=== PATIENT | female | born 1985 | race Caucasian/White ===

== ENCOUNTER 2017-05-10 19:30 | Emergency (ER) | payer OTHER ==
[~2017-05-10] VITALS: Ht 162.6 cm; Wt 54.5 kg
[2017-05-10 19:30] VITALS: BP 167/94
[~2017-05-10 19:30] MED LIST: ACET50TA PO; ANUS2.5C2 TOP; COLA50CA3 PO; IBUP600T26 PO; MILKSUS5 PO
[2017-05-10] MEDS ORDERED: microgestin PO (19:40)
--- NOTE | 2017-05-11 07:41 | REP ---
Left elbow for views: I suspect a nondisplaced fracture of the lateral humeral condyle and one-view. Correlate with clinical point tenderness. CT confirmation might be considered for clinically indicated. There are calcifications adjacent to the medial humeral epicondyle, possibly small a avulsions. There are calcifications at the olecranon, likely degenerative. There is no hemarthrosis. No dislocation. Mineralization normal. Impression: Fractures as described. These could be confirmed with CT if felt clinically indicated. Signed by Tod Daniels MD 05/11/2017 07:33 A
== END 2017-05-10 21:14 | disposition home or self-care (01) ==
LOC: M ED 19:30
DX: S59.902A Unspecified injury of left elbow, initial encounter (principal); W01.198A Fall on same level from slipping, tripping and stumbling with subsequent striking against other object, initial encounter; Y92.310 Basketball court as the place of occurrence of the external cause; Y93.67 Activity, basketball; Y99.8 Other external cause status; Z79.899 Other long term (current) drug therapy

== ENCOUNTER → 2023-06-04 | Outpatient (CLI) | payer OTHER ==
[~2023-06-04] MED LIST changes: -ACET50TA PO; +MAPA500T17 PO; +microgestin PO
[2023-06-04 18:22] LABS: THYROID STIMULATING HORMONE 3.593 uIU/ML (0.55-4.78)
== END ==
LOC: M LAB 16:49
PROVIDERS: ATTEND Nurse Practitioner Women's Health
DX: L74.510 Primary focal hyperhidrosis, axilla (principal); N91.1 Secondary amenorrhea